=== PATIENT | female | born 1950 | race Caucasian/White ===

== ENCOUNTER 2016-07-24 14:48 | Outpatient (CLI) | payer OTHER ==
--- NOTE | 2016-07-26 08:41 | Mammography Report ---
DIGITAL BILATERAL SCREENING MAMMOGRAM: 07/24/2016 CLINICAL HISTORY: This is a 65-year-old female in for routine screening mammogram. The patient has no family history of breast cancer. Patient has no prior breast surgeries. COMPARISON: 01/19/2015, 02/21/2015 TECHNIQUE: Craniocaudad and oblique lateral views of each breast were obtained with [employer] digital mammography. FINDINGS: Breast parenchyma consists of scattered fibroglandular densities. No significant clusters of calcification are seen. No significant masses are noted. No change is de tected. IMPRESSION: BREASTS APPEAR RADIOGRAPHICALLY BENIGN. BIRADS CATEGORY 1 - NEGATIVE. RECOMMENDATIONS: Annual bilateral screening mammography. STANDARD QUALIFYING STATEMENTS 1. This examination was reviewed with the aid of Computer-Aided Detection (CAD). 2. A negative or benign imaging report should not delay biopsy if clinically suspicious findings are present. Consider surgical consultation if warranted. More than 5% of cancers are not identified by i maging. 3. Dense breasts may obscure an underlying neoplasm. JOB #: [id number] EXT JOB #:[id number]
== END 2016-07-24 14:49 | disposition home or self-care (01) ==
LOC: DI.S 14:48
PROVIDERS: ATTEND Nurse Practitioner Women's Health
DX: Z12.31 Encounter for screening mammogram for malignant neoplasm of breast (principal)
CPT/HCPCS: 77067

== ENCOUNTER 2016-12-17 20:20 | Outpatient (CLI) | payer OTHER ==
[2016-12-17 19:38] LABS: ALBUMIN/GLOBULIN RATIO 1.4 (1.0-2.2); BILIRUBIN,TOTAL 1.3 mg/dL (0.2-1.0); BUN - BLOOD UREA NITROGEN 15 mg/dL (6-20); CALCIUM 9.3 mg/dL (8.5-10.3); CARBON DIOXIDE - CO2 22 mmol/L (21-32); CHLORIDE 105 mmol/L (101-111); CREATININE 0.8 mg/dL (0.4-1.0); GFR - MDRD 72 (>89); GLUCOSE 167 mg/dL (70-100); SODIUM 136 mmol/L (135-145); TOTAL PROTEIN 7.4 g/dL (6.7-8.2)
[2016-12-17 20:05] LABS: HEMOGLOBIN A1C 1.48 g/dL
== END 2016-12-17 20:21 | disposition home or self-care (01) ==
LOC: LAB.WCP 20:20
PROVIDERS: ATTEND Family Medicine
DX: E11.9 Type 2 diabetes mellitus without complications (principal)
CPT/HCPCS: 36415; 80053; 83036; 84443

== ENCOUNTER 2016-12-24 15:16 | Outpatient (CLI) | payer OTHER ==
--- NOTE | 2016-12-25 09:38 | Ultrasound Report ---
THYROID ULTRASOUND: 12/24/2016 COMPARISON STUDY: None. INDICATION: Neck mass. TECHNIQUE: Sonographic evaluation of the thyroid was performed. FINDINGS: There is a predominantly cystic nodule of the left thyroid lobe that measures up to 3.5 cm . There is a small amount of mural nodularity. There are two mixed solid and cystic nodules of the right lobe, superiorly 1.2 cm and mid lobe 1.0 cm . The isthmus appears grossly unremarkable. Right lobe 5.4 x 1.8 x 1.6 cm. Volume 8 mL. Left lobe 4.7 x 3.8 x 3.0 cm. Volume 28 mL. Isthmus 4 mm. IMPRESSION: 1. LARGE PREDOMINANTLY CYSTIC NODULE OF THE LEFT LOBE. 2. SMALLER MIXED SOLID/CYSTIC NODULES OF THE RIGHT LOBE MEASURE UP TO 1.2 CM. FOLLOWUP IS AVAILABLE . JOB #: [id number] EXT JOB #:[id number]
== END 2016-12-24 15:17 | disposition home or self-care (01) ==
LOC: DI 15:16
PROVIDERS: ATTEND Family Medicine
DX: E04.2 Nontoxic multinodular goiter (principal)
CPT/HCPCS: 76536

== ENCOUNTER 2017-02-12 07:23 | Outpatient (CLI) | payer OTHER ==
[2017-02-12 08:02] LABS: ALBUMIN/GLOBULIN RATIO 1.4 (1.0-2.2); BILIRUBIN,TOTAL 0.9 mg/dL (0.2-1.0); BUN - BLOOD UREA NITROGEN 22 mg/dL (6-20); CALCIUM 9.2 mg/dL (8.5-10.3); CARBON DIOXIDE - CO2 24 mmol/L (21-32); CHLORIDE 103 mmol/L (101-111); CHOL/HDL RATIO 2.9 (<4.4); CHOLESTEROL 171 mg/dL; CREATININE 0.9 mg/dL (0.4-1.0); GFR - MDRD 63 (>89); GLUCOSE 141 mg/dL (70-100); HDL CHOLESTEROL 58 mg/dL; LDL/HDL RATIO 1.6 (<4.4); SODIUM 137 mmol/L (135-145); TOTAL PROTEIN 7.1 g/dL (6.7-8.2); TRIGLYCERIDES 103 mg/dL; VLDL CHOLESTEROL 21 mg/dL
[2017-02-12 08:42] LABS: HEMOGLOBIN A1C 0.85 g/dL
== END 2017-02-12 07:24 | disposition home or self-care (01) ==
LOC: LAB 07:23
PROVIDERS: ATTEND Family Medicine
DX: E11.9 Type 2 diabetes mellitus without complications (principal)
CPT/HCPCS: 36415; 80053; 80061; 83036

== ENCOUNTER 2017-02-26 13:17 | Outpatient (CLI) | payer OTHER ==
[2017-02-26] MEDS ORDERED: BUFFERED LIDOCAINE 10 ML SYRINGE IU ONE (16:40)
--- NOTE | 2017-02-27 16:35 | Ultrasound Report ---
DATE OF SERVICE: 02/26/2017 ULTRASOUND-GUIDED FINE NEEDLE ASPIRATION, LEFT THYROID CYST: 02/26/2017 CLINICAL INDICATION: A 3.1 cm cyst in the left lobe of the thyroid. PROCEDURE: Following obtaining informed consent, the patient's left neck was prepped and draped in t he usual sterile fashion. The skin and soft tissues were anesthetized with lidocaine. A 21-gauge needle was inserted into the left thyroid cyst, and the cyst was aspirated to completion. No residual solid component is identified. Cyst fluid was submitted to Pathology for cytologic evaluation. IMPRESSION: Successful left thyroid cyst aspiration. Pathology report pending. TD: 02/26/2017 19:07
== END 2017-02-26 13:18 | disposition home or self-care (01) ==
LOC: DI 13:17
PROVIDERS: ATTEND Otolaryngology
DX: E04.1 Nontoxic single thyroid nodule (principal)
CPT/HCPCS: 10022; 76942

== ENCOUNTER 2017-04-25 14:10 | Outpatient (CLI) | payer OTHER | END 2017-04-25 14:11 | disposition home or self-care (01) | LOC: LAB.F 14:10 | DX: Z01.89 Encounter for other specified special examinations (principal) ==

== ENCOUNTER 2018-02-18 13:49 | Outpatient (CLI) | payer OTHER ==
[2018-02-18 19:56] LABS: BASOPHILS % (AUTO) 0.8 %; EOSINOPHILS # (AUTO) 0.2 10^3/uL (0.0-0.7); HGB - HEMOGLOBIN 14.9 g/dL (12.0-16.0); LYMPHOCYTES # (AUTO) 2.6 10^3/uL (1.5-3.5); LYMPHOCYTES % (AUTO) 42.8 %; MEAN CORPUSCULAR HEMOGLOBIN 29.8 pg (27.0-31.0); MEAN CORPUSCULAR HGB CONC 32.4 g/dL (32.0-36.0); MEAN PLATELET VOLUME 8.5 fL (7.9-10.8); MONOCYTES # (AUTO) 0.3 10^3/uL (0.0-1.0); MONOCYTES % (AUTO) 5.5 %; NEUTROPHILS # (AUTO) 2.9 10^3/uL (1.5-6.6); NEUTROPHILS % (AUTO) 47.9 %; PLT - PLATELET COUNT 250 10^3/uL (130-450); RED CELL DISTRIBUTION WIDTH 13.2 % (12.0-15.0); WHITE BLOOD COUNT 6.2 x10^3/uL (4.8-10.8)
[2018-02-18 20:21] LABS: HB2 TOTAL 15.5 g/dL; HEMOGLOBIN A1C 1.6 g/dL; HEMOGLOBIN A1C % 11.6 % (4.6-6.2)
[2018-02-18 20:23] LABS: ALBUMIN/GLOBULIN RATIO 1.3 (1.0-2.2); ALKALINE PHOSPHATASE 90 IU/L (42-121); ALT ALANINE AMINOTRANSFERASE 18 IU/L (10-60); AST ASPARTATE AMINOTRANSFERASE 17 IU/L (10-42); BILIRUBIN,TOTAL 1.5 mg/dL (0.2-1.0); BUN - BLOOD UREA NITROGEN 13 mg/dL (6-20); CALCIUM 8.9 mg/dL (8.5-10.3); CARBON DIOXIDE - CO2 24 mmol/L (21-32); CHLORIDE 103 mmol/L (101-111); CHOL/HDL RATIO 4.5 (<4.4); CHOLESTEROL 263 mg/dL; CREATININE 0.6 mg/dL (0.4-1.0); GFR - MDRD 100 (>89); GLUCOSE 285 mg/dL (70-100); HDL CHOLESTEROL 58 mg/dL; LDL CHOLESTEROL,CALCULATED 158 mg/dL; LDL/HDL RATIO 2.7 (<4.4); SODIUM 136 mmol/L (135-145); TOTAL PROTEIN 7.2 g/dL (6.7-8.2); VLDL CHOLESTEROL 47 mg/dL
== END 2018-02-18 23:59 | disposition home or self-care (01) ==
LOC: LAB.WCP 13:49
PROVIDERS: ATTEND Family Medicine
DX: E11.9 Type 2 diabetes mellitus without complications (principal)
CPT/HCPCS: 36415; 80053; 80061; 82043; 83036; 83721; 85025

== ENCOUNTER 2018-08-20 07:05 | Outpatient (CLI) | payer OTHER ==
[2018-08-20 12:48] LABS: ALBUMIN 4.4 g/dL (3.2-5.5); ALBUMIN/GLOBULIN RATIO 1.5 (1.0-2.2); ALKALINE PHOSPHATASE 52 IU/L (42-121); ALT ALANINE AMINOTRANSFERASE 19 IU/L (10-60); AST ASPARTATE AMINOTRANSFERASE 20 IU/L (10-42); BUN - BLOOD UREA NITROGEN 23 mg/dL (6-20); CALCIUM 9.5 mg/dL (8.5-10.3); CARBON DIOXIDE - CO2 20 mmol/L (21-32); CHLORIDE 109 mmol/L (101-111); CHOLESTEROL 176 mg/dL; CREATININE 0.7 mg/dL (0.4-1.0); GFR - MDRD 83 (>89); GLUCOSE 123 mg/dL (70-100); HDL CHOLESTEROL 59 mg/dL; LDL CHOLESTEROL,CALCULATED 95 mg/dL; LDL/HDL RATIO 1.6 (<4.4); SODIUM 142 mmol/L (135-145); TOTAL PROTEIN 7.4 g/dL (6.7-8.2); VLDL CHOLESTEROL 22 mg/dL
[2018-08-20 13:04] LABS: HB2 TOTAL 15.5 g/dL; HEMOGLOBIN A1C 0.73 g/dL; HEMOGLOBIN A1C % 6.5 % (4.6-6.2)
== END 2018-08-20 07:06 | disposition home or self-care (01) ==
LOC: LAB.WCP 07:05
PROVIDERS: ATTEND Family Medicine
DX: E11.8 Type 2 diabetes mellitus with unspecified complications (principal)
CPT/HCPCS: 36415; 80053; 80061; 83036; 83721

== ENCOUNTER 2019-01-27 08:00 | Outpatient (CLI) | payer OTHER ==
[2019-01-27 13:35] LABS: MICROALBUM/CREATININE RATIO,UR 8.6 ug/mg (<30.0); MICROALBUMIN,URINE 0.9 mg/dL (0-300.0)
[2019-01-27 13:58] LABS: CALCIUM 9.4 mg/dL (8.5-10.3); CREATININE 0.8 mg/dL (0.4-1.0)
[2019-01-27 14:22] LABS: HB2 TOTAL 15.3 g/dL; HEMOGLOBIN A1C 0.95 g/dL; HEMOGLOBIN A1C % 7.8 % (4.6-6.2)
== END 2019-01-27 23:59 | disposition home or self-care (01) ==
LOC: LAB.WCP 08:00
PROVIDERS: ATTEND Family Medicine
DX: E11.65 Type 2 diabetes mellitus with hyperglycemia (principal)
CPT/HCPCS: 36415; 80048; 82043; 82570; 83036

== ENCOUNTER 2019-02-03 10:18 | Outpatient (CLI) | payer OTHER ==
--- NOTE | 2019-02-04 17:53 | XRAY Report ---
Reason: SPONTANEOUS RUPTURE OF QUADRICEPS TENDON [facility] Procedure Date: 02/03/2019 Accession Number: [id number] / [id number] Procedure: WCP - Knee 2 View RT CPT Code: Final Report FULL RESULT: EXAM: RIGHT KNEE RADIOGRAPHY EXAM DATE: 02/03/2019 10:18 AM. CLINICAL HISTORY: SPONTANEOUS RUPTURE OF QUADRICEPS TENDON RIGHT. COMPARISON: None. TECHNIQUE: 2 views. FINDINGS: Bones: Normal. No fractures or bone lesions. Joints: No evidence of dislocation. Likely suprapatellar joint effusion. Soft Tissues: Normal. No soft tissue swelling. IMPRESSION: 1. No fracture or dislocation. 2. Joint spacing is maintained. 3. Likely suprapatellar joint effusion. RADIA
--- NOTE | 2019-02-04 17:54 | XRAY Report ---
Reason: SPONTANEOUS RUPTURE OF QUADRICEPS RIGHT Procedure Date: 02/03/2019 Accession Number: [id number] / [id number] Procedure: WCP - Femur 2V RT CPT Code: Final Report FULL RESULT: EXAM: RIGHT FEMUR RADIOGRAPHY EXAM DATE: 02/03/2019 10:18 AM. CLINICAL HISTORY: SPONTANEOUS RUPTURE OF QUADRICEPS RIGHT. COMPARISON: None. TECHNIQUE: 2 views. FINDINGS: Bones: Normal. No fracture or bone lesion. Joints: No evidence of dislocation. Joint spacing is maintained. Soft Tissues: Normal. No soft tissue swelling. IMPRESSION: Negative femur radiography. Knee findings are detailed separately. RADIA
== END 2019-02-03 23:59 | disposition home or self-care (01) ==
LOC: DI.WCP 10:18
PROVIDERS: ATTEND Family Medicine
DX: M66.861 Spontaneous rupture of other tendons, right lower leg (principal)

== ENCOUNTER 2020-01-06 07:00 | Outpatient (CLI) | payer OTHER ==
[2020-01-06 12:02] LABS: ALBUMIN 4.4 g/dL (3.2-5.5); ALBUMIN/GLOBULIN RATIO 1.4 (1.0-2.2); ALKALINE PHOSPHATASE 59 IU/L (42-121); ALT ALANINE AMINOTRANSFERASE 20 IU/L (10-60); AST ASPARTATE AMINOTRANSFERASE 18 IU/L (10-42); BILIRUBIN,TOTAL 0.9 mg/dL (0.2-1.0); BUN - BLOOD UREA NITROGEN 19 mg/dL (6-20); CALCIUM 9.7 mg/dL (8.5-10.3); CARBON DIOXIDE - CO2 23 mmol/L (21-32); CHLORIDE 105 mmol/L (101-111); CHOL/HDL RATIO 3.5 (<4.4); CHOLESTEROL 219 mg/dL; CREATININE 0.7 mg/dL (0.4-1.0); GLUCOSE 190 mg/dL (70-100); HDL CHOLESTEROL 62 mg/dL; LDL CHOLESTEROL,CALCULATED 131 mg/dL; LDL/HDL RATIO 2.1 (<4.4); SODIUM 139 mmol/L (135-145); TOTAL PROTEIN 7.6 g/dL (6.7-8.2); VLDL CHOLESTEROL 26 mg/dL
[2020-01-06 12:07] LABS: BASOPHILS # (AUTO) 0.1 10^3/uL (0.0-0.1); BASOPHILS % (AUTO) 0.9 %; EOSINOPHILS # (AUTO) 0.2 10^3/uL (0.0-0.7); EOSINOPHILS % (AUTO) 3.2 %; HGB - HEMOGLOBIN 14.2 g/dL (12.0-16.0); LYMPHOCYTES # (AUTO) 2.5 10^3/uL (1.5-3.5); MEAN CORPUSCULAR HEMOGLOBIN 29.3 pg (27.0-31.0); MEAN CORPUSCULAR HGB CONC 32.1 g/dL (32.0-36.0); MEAN CORPUSCULAR VOLUME 91.3 fL (81.0-99.0); MEAN PLATELET VOLUME 10.3 fL (7.9-10.8); MONOCYTES # (AUTO) 0.4 10^3/uL (0.0-1.0); NEUTROPHILS # (AUTO) 2.7 10^3/uL (1.5-6.6); NEUTROPHILS % (AUTO) 45.6 %; PLT - PLATELET COUNT 304 10^3/uL (130-450); RED BLOOD COUNT 4.84 10^6/uL (4.20-5.40); RED CELL DISTRIBUTION WIDTH 12.9 % (12.0-15.0); WHITE BLOOD COUNT 5.9 x10^3/uL (4.8-10.8)
[2020-01-06 12:12] LABS: CREATININE,URINE 75.3 mg/dL; MICROALBUM/CREATININE RATIO,UR 14.6 ug/mg (<30.0); MICROALBUMIN,URINE 1.1 mg/dL (0-300.0)
[2020-01-06 12:32] LABS: HEMOGLOBIN A1c% 8.1 % (4.27-6.07)
== END 2020-01-06 23:59 | disposition home or self-care (01) ==
LOC: LAB.WCP 07:00
PROVIDERS: ATTEND Family Medicine
DX: E11.65 Type 2 diabetes mellitus with hyperglycemia (principal)
CPT/HCPCS: 36415; 80053; 80061; 82043; 82570; 83036; 83721; 85025

== ENCOUNTER 2020-10-28 20:10 | Outpatient (CLI) | payer BC | END 2020-10-28 23:59 | disposition short-term general hospital (02) | LOC: EMS 20:10 | DX: Z04.3 Encounter for examination and observation following other accident (principal); M25.552 Pain in left hip | CPT/HCPCS: A0425; A0427 ==

== ENCOUNTER 2021-02-15 10:59 | Outpatient (CLI) | payer BC ==
[2021-02-15 18:20] LABS: BASOPHILS # (AUTO) 0.1 10^3/uL (0.0-0.1); BASOPHILS % (AUTO) 0.9 %; EOSINOPHILS # (AUTO) 0.2 10^3/uL (0.0-0.7); EOSINOPHILS % (AUTO) 3.1 %; HCT - HEMATOCRIT 47.9 % (37.0-47.0); HGB - HEMOGLOBIN 15.4 g/dL (12.0-16.0); LYMPHOCYTES % (AUTO) 34.8 %; MEAN CORPUSCULAR HEMOGLOBIN 28.8 pg (27.0-31.0); MEAN CORPUSCULAR HGB CONC 32.2 g/dL (32.0-36.0); MEAN CORPUSCULAR VOLUME 89.7 fL (81.0-99.0); MEAN PLATELET VOLUME 10.3 fL (7.9-10.8); MONOCYTES # (AUTO) 0.4 10^3/uL (0.0-1.0); MONOCYTES % (AUTO) 6.3 %; NEUTROPHILS # (AUTO) 3.2 10^3/uL (1.5-6.6); NEUTROPHILS % (AUTO) 54.7 %; PLT - PLATELET COUNT 328 10^3/uL (130-450); RED BLOOD COUNT 5.34 10^6/uL (4.20-5.40); RED CELL DISTRIBUTION WIDTH 12.6 % (12.0-15.0); WHITE BLOOD COUNT 5.8 x10^3/uL (4.8-10.8)
[2021-02-15 18:38] LABS: ALBUMIN 4.7 g/dL (3.2-5.5); ALBUMIN/GLOBULIN RATIO 1.6 (1.0-2.2); ALKALINE PHOSPHATASE 71 IU/L (42-121); ALT ALANINE AMINOTRANSFERASE 20 IU/L (10-60); AST ASPARTATE AMINOTRANSFERASE 22 IU/L (10-42); BILIRUBIN,TOTAL 0.9 mg/dL (0.2-1.0); BUN - BLOOD UREA NITROGEN 18 mg/dL (6-20); CALCIUM 10.3 mg/dL (8.5-10.3); CARBON DIOXIDE - CO2 24 mmol/L (21-32); CHLORIDE 103 mmol/L (101-111); CHOL/HDL RATIO 2.8 (<4.4); CHOLESTEROL 213 mg/dL; CREATININE 0.7 mg/dL (0.4-1.0); GFR - MDRD 83 (>89); GLUCOSE 114 mg/dL (70-100); HDL CHOLESTEROL 76 mg/dL; LDL CHOLESTEROL,CALCULATED 118 mg/dL; LDL/HDL RATIO 1.6 (<4.4); POTASSIUM 3.9 mmol/L (3.5-5.0); SODIUM 140 mmol/L (135-145); TOTAL PROTEIN 7.6 g/dL (6.7-8.2); TRIGLYCERIDES 94 mg/dL; VLDL CHOLESTEROL 19 mg/dL
[2021-02-15 18:41] LABS: CREATININE,URINE 164.4 mg/dL; MICROALBUM/CREATININE RATIO,UR 21.9 ug/mg (<30.0); MICROALBUMIN,URINE 3.6 mg/dL (0-300.0)
[2021-02-15 18:43] LABS: THYROID STIMULATING HORMONE 0.78 uIU/mL (0.34-5.60)
[2021-02-15 20:30] LABS: ESTIMATED AVERAGE GLUCOSE 140 mg/dL (70-100); HEMOGLOBIN A1c% 6.5 % (4.27-6.07)
== END 2021-02-15 23:59 | disposition home or self-care (01) ==
LOC: LAB.WCP 10:59
PROVIDERS: ATTEND Family Medicine
DX: E78.5 Hyperlipidemia, unspecified (principal); I10 Essential (primary) hypertension; E11.8 Type 2 diabetes mellitus with unspecified complications
CPT/HCPCS: 36415; 80053; 80061; 82043; 82570; 83036; 83721; 84443; 85025